=== PATIENT | female | born 1935 | race Caucasian/White ===

== ENCOUNTER 2016-12-25 13:49 | Outpatient (CLI) | payer MEDICARE ==
[~2016-12-25 13:49] MED LIST: Sodium Chloride 0.9% 15 ML NEB ONE
--- NOTE | 2016-12-25 15:10 | PRG ---
DATE OF SERVICE: 12/25/2016 HISTORY: Ms. Earle Jackson is a very pleasant 81-year-old who [facility] ev aluation of multiple small draining wounds of the right and left lower legs which she previously sta dyan had been present for approximately 1 year. The patient also previously stated that she has had swelling of the lower extremities which also has been present for approximately 1 year. The patient stated she was prescribed a pair of compression garments which were difficult to apply. She stated that she later purchased some compression garments at a pharmacy which helped for a while in regard to the edema of her lower extremities. She stated that she was not sure as to why she stopped usin g the garments. Although, the patient received Home Health, dressing changes did not result in the healing of the multiple small draining wounds of her right and left lower legs. The patient has bee n receiving dressing changes of Webril and the 3M Coban two-layer compression system on a weekly bas is here in the [facility] for the ulcerations of her right and left lower legs. PHYSICAL EXAMINATION: VITAL SIGNS: Temperature 98.2, pulse 79, respirations 18, and blood pressure 141/61. EXTREMITIES: No ulcerations are present over the right lower leg and ulceration is present over the left lower leg which measures approximately 0.6 x 0.6 cm. No serous or purulent drainage is associ ated with the wound. No erythema of the skin surrounding the wound is present. No maceration of th e skin of the periwound is noted. A dorsalis pedis pulse is palpable on the right and on the left. Numerous varicosities are present over the right and left feet and lower legs. Hyperpigmentation o f the skin of the right and left lower legs is noted on exam today in addition to stasis dermatitis of the right and left lower legs. ASSESSMENT AND PLAN: 1. Varicose veins with ulcer and inflammation. Silverlon, Webril, and the 3M Coban two-layer compr ession system will be applied to the ulceration of the left lower leg, Webril and the 3M Coban two-l davey compression system will be applied to the right foot and lower leg. I will see Ms. Jackson aga in in one week. The patient has been asked to bring her compression garments with her to her next [facility]. 2. Stage 2 lymphedema tarda. The patient continues to experience lymphedema despite exercise, elev ation and treatment with compression wraps. 3. Hypertension. 4. Atrial fibrillation. 5. History of iron-deficiency anemia. 6. Hypothyroidism. 7. Mitral regurgitation.
== END 2016-12-25 13:50 | disposition home or self-care (01) ==
LOC: WCC 13:49
PROVIDERS: ATTEND Family Medicine
DX: I83.028 Varicose veins of left lower extremity with ulcer other part of lower leg (principal); I89.0 Lymphedema, not elsewhere classified; I10 Essential (primary) hypertension; I48.91 Unspecified atrial fibrillation; E03.9 Hypothyroidism, unspecified; D50.9 Iron deficiency anemia, unspecified; I34.0 Nonrheumatic mitral (valve) insufficiency
CPT/HCPCS: 29581; A4218

== ENCOUNTER 2017-01-01 10:18 | Outpatient (CLI) | payer MEDICARE ==
--- NOTE | 2017-01-01 12:12 | PRG ---
DATE OF SERVICE: 01/01/2017 HISTORY: Ms. Earle Jackson is a very pleasant 81-year-old who presents to the [facility] for ev aluation of multiple small draining wounds of the right and left lower legs which she previously sta dyan, had been present for approximately 1 year. The patient also previously stated that she has had swelling of the lower extremities which also has been present for approximately 1 year. The patien t stated she was prescribed a pair of compression garments which were difficult to apply. She state d that she later purchased some compression garments at a pharmacy which helped for a while in regar d to the edema of her lower extremities. She stated that she was not sure as to why she stopped usi ng the garments. Although the patient received Home Health, dressing changes did not result in the healing of the multiple small draining wounds of her right and left lower legs. The patient has bee n receiving dressing changes of Webril and the 3M Coban 2 layer compression system on a weekly basis here in the [facility] for the ulcerations of her right and left lower legs. PHYSICAL EXAMINATION: VITAL SIGNS: Temperature 97.8, pulse 80, respirations 18, blood pressure 143/65. EXTREMITIES: An ulceration is present over the left lower leg which measures approximately 0.7 x 1. 2 cm. No serous or purulent drainage is associated with the wound. No erythema of the skin surroun ding the wound is present. No maceration of the skin of the periwound is noted. A dorsalis pedis p ulse is palpable on the right and on the left. Numerous varicosities are present over the right and left feet and lower legs. Hyperpigmentation of the skin of the right and left lower legs is noted on exam today in addition to stasis dermatitis of the right and left lower legs. ASSESSMENT AND PLAN: 1. Varicose veins with ulcer and inflammation. Silverlon, Webril, and the 3M Coban two-layer compr ession system will be applied to the ulceration of the left lower leg, Webril and the 3M Coban two-l davey compression system will be applied to the right foot and lower leg. I will see Mrs. Jackson noman warren in 1 week. The patient has been asked to bring her compression garments with her to her next cl inic visit. 2. Stage 2 lymphedema tarda. The patient continues to experience lymphedema despite exercise, elev ation and treatment with compression wraps. 3. Hypertension. 4. Atrial fibrillation. 5. History of iron-deficiency anemia. 6. Hypothyroidism. 7. Mitral regurgitation.
[2017-01-01] MEDS ORDERED: Sodium Chloride 0.9% 15 ML NEB ONE (16:17)
== END 2017-01-01 10:19 | disposition home or self-care (01) ==
LOC: WCC 10:18
PROVIDERS: ATTEND Family Medicine
DX: I83.209 Varicose veins of unspecified lower extremity with both ulcer of unspecified site and inflammation (principal); L97.429 Non-pressure chronic ulcer of left heel and midfoot with unspecified severity; L97.419 Non-pressure chronic ulcer of right heel and midfoot with unspecified severity; I89.0 Lymphedema, not elsewhere classified; I10 Essential (primary) hypertension; I48.91 Unspecified atrial fibrillation; E03.9 Hypothyroidism, unspecified; I34.0 Nonrheumatic mitral (valve) insufficiency; Z86.2 Personal history of diseases of the blood and blood-forming organs and certain disorders involving the immune mechanism
CPT/HCPCS: 29581; A4218

== ENCOUNTER 2017-01-08 11:23 | Outpatient (CLI) | payer MEDICARE ==
--- NOTE | 2017-01-08 12:55 | PRG ---
DATE OF SERVICE: 01/08/2017 HISTORY: Ms. Earle Jackson is a very pleasant 81-year-old, who presents to the [facility] for e valuation of multiple small draining wounds of the right and left lower legs, which she previously s tated had been present for approximately 1 year. The patient also previously stated that she had saravia d swelling of the lower extremities, which also had been present for approximately 1 year. The kiki ent stated she was prescribed a pair of compression garments, which were difficult to apply. She st ated that she later purchased some compression garments at the pharmacy, which helped for a while in regard to the edema of her lower extremities. She stated that she was not sure as to why she stopp ed using the garments, although the patient received Home Health. Dressing changes did not result i n the healing of the multiple small draining wound of her right and left lower legs. The patient saravia s been receiving dressing changes of Webril and the 3M Coban 2 layer compression system on a weekly basis here in the [facility] for the ulcerations of her right and left lower legs. PHYSICAL EXAMINATION: VITAL SIGNS: Temperature 97.5, pulse 75, respirations 18, and blood pressure 119/60. EXTREMITIES: The ulcerations over the right and left lower legs have healed completely. No erythem a of the skin of the right or left lower leg is present. No maceration of the skin of the right or left lower leg is noted. A dorsalis pedis pulse is palpable on the right and on the left. Numerous varicosities are present over the right and left feet and lower legs. Hyperpigmentation of the ski n of the right and left lower legs is noted on exam today in addition to stasis dermatitis of the ri ght and left lower legs. ASSESSMENT AND PLAN: 1. Varicose veins with ulcer and inflammation. As stated above, all ulcerations of the right and l eft lower legs have healed completely. The patient has received her pneumatic pump and she states s he has been using the pneumatic pump for the past 4 days. Ms. Jackson will be discharged from [facility] today with followup on a p.r.n. basis. The patient has been instructed to apply her compression g arments each morning and remove them at night. She has also been instructed today in the proper use of her pneumatic pump. 2. Stage 2 lymphedema tarda. 3. Hypertension. 4. Atrial fibrillation. 5. History of iron-deficiency anemia. 6. Hypothyroidism. 7. Mitral regurgitation.
== END 2017-01-08 11:24 | disposition home or self-care (01) ==
LOC: WCC 11:23
PROVIDERS: ATTEND Family Medicine
DX: I83.209 Varicose veins of unspecified lower extremity with both ulcer of unspecified site and inflammation (principal); I10 Essential (primary) hypertension; I48.91 Unspecified atrial fibrillation; E03.9 Hypothyroidism, unspecified; I89.0 Lymphedema, not elsewhere classified; I34.0 Nonrheumatic mitral (valve) insufficiency
CPT/HCPCS: 29581